=== PATIENT | male | born 1990 | race Caucasian/White ===

== ENCOUNTER 2022-05-07 18:39 | Emergency (ER) | payer SELFPAY ==
[~2022-05-07] VITALS: Ht 180.3 cm; Wt 96.0 kg
[2022-05-07] MEDS ORDERED: IBUP-2029 MT (23:43)
[2022-05-08 00:10] VITALS: BP 108/73
== END 2022-05-08 00:15 | disposition home or self-care (01) ==
LOC: ER 18:39
DX: S62.390A Other fracture of second metacarpal bone, right hand, initial encounter for closed fracture (principal); G40.909 Epilepsy, unspecified, not intractable, without status epilepticus; Y04.0XXA Assault by unarmed brawl or fight, initial encounter; Y93.89 Activity, other specified; Y92.89 Other specified places as the place of occurrence of the external cause
CPT/HCPCS: 29125; 73130; 99283